=== PATIENT | female | born 1985 | race Asian ===

== ENCOUNTER 2019-12-23 12:34 | Inpatient (IN) | payer OTHER ==
[2019-12-23] MEDS ORDERED: BICITRA ORAL LIQD 30ML PO ONE (12:58)
[2019-12-23] MEDS ORDERED: FAMOTIDINE 20 MG/2 ML INJ IV ONE (12:58)
[2019-12-23] MEDS ORDERED: METOCLOPRAMIDE 10 MG/2 ML INJ IV ONE (12:58)
[2019-12-23] MEDS ORDERED: ceFAZolin/Water 2 GM/20 ML 2 GM/20 ML SYRINGE IV NR (13:00)
[2019-12-23] MEDS ORDERED: LACTATED RINGERS 1,000 ML IV SCH (13:00)
[2019-12-23] MEDS ORDERED: OXYTOCIN 20 UNIT/1000ML DRIP 20 UNITS/1,000 ML BAG IV SCH ×2 (13:00→15:00)
[2019-12-23 13:17] LABS: Basophils # (Auto) 0.1 K/mm3 (0.0-0.1); Basophils % (Auto) 0.7 % (0.0-1.8); Eosinophils # (Auto) 0.1 K/mm3 (0.0-0.4); Eosinophils % (Auto) 0.6 % (0.0-4.3); Hematocrit 35.9 % (30.3-42.9); Hemoglobin 12.5 gm/dl (10.1-14.3); Lymphocytes # (Auto) 1.9 K/mm3 (1.2-5.4); Lymphocytes % (Auto) 19.2 % (13.4-35.0); Mean Corpuscular HGB Conc 35 % (30-34); Mean Corpuscular Volume 86 fl (79-97); Monocytes # (Auto) 0.5 K/mm3 (0.0-0.8); Monocytes % (Auto) 5.6 % (0.0-7.3); Platelet Count 122 K/mm3 (140-440); Red Blood Count 4.19 M/mm3 (3.65-5.03); Red Cell Distribution Width 13.9 % (13.2-15.2)
[2019-12-23] MEDS ORDERED: DEXMEDETOMIDINE 200 MCG/2 ML VIAL IV ONE (13:32)
--- NOTE | 2019-12-23 13:40 | History and Physical Report ---
History of Present Illness Date of examination: 12/23/19 Date of admission: 12/23/19 12:34 Chief complaint: Breech in labor History of present illness: Pt is a 34yo BF EDC 01/05/20; EGA 38 1/7 weeks presents for a C Section for Breech presentation in labor. She complined of RUC's in the office and found to be dilated 3cms. She received care at [facility] since 10 weeks and co-managed by [facility] for history of PTD. records are a vailable and GBS is Positive. Past History Past Medical History: no pertinent history Past Surgical History: no surgical history Family/Genetic History: none Social history: no significant social history, - Obstetrical History Expected Date of Delivery: 01/05/20 Actual Gestation: 38 Week(s) 1 Day(s) : 4 Medications and Allergies Allergies Allergy/AdvReac Type Severity Reaction Status Date / Time No Known Allergies Allergy Verified 11/21/14 21:48 Home Medications Medication Instructions Recorded Confirmed Last Taken Type Pnv,Calcium 72/Iron/Folic Acid 1 tab PO DAILY 11/22/14 12/23/19 12/22/19 08:00 History [Pnv Plus Multivit Tab] Active Meds: Active Medications Oxytocin/Sodium Chloride (Pitocin/Ns 20 Unit/1000ml Drip) 20 units in 1,000 mls @ 0 mls/hr IV TITR STEPHEN Lactated Ringer's (Lactated Ringers) 1,000 mls @ 2,250 mls/hr IV PREOP STEPHEN Stop: 12/24/19 13:27 Last Admin: 12/23/19 13:22 Dose: 2,250 mls/hr Documented by: Cefazolin Sodium (Ancef/Sterile Water 2 Gm/20 Ml) 2 gm in 20 mls @ 80 mls/hr IV PREOP NR; Protocol Stop: 12/23/19 23:59 Review of Systems All systems: negative - Vital Signs Vital signs: Vital Signs Temp Resp 98.3 F 12/23/19 13:02 12/23/19 13:02 Temp Pulse Resp BP Pulse Ox 98.3 F 12/23/19 13:02 12/23/19 13:02 - Physical Exam Breasts: Positive: deferred Cardiovascular: Regular rate Lungs: Positive: Clear to auscultation Abdomen: Positive: normal appearance Genitourinary (Female): Positive: normal external genitalia Vagina: Positive: normal moisture Uterus: Positive: enlarged Extremities: Positive: normal - Obstetrical FHR: category 1 Uterine Contraction Monitor Mode: External Cervical Dilatation: 3 Cervical Effacement Percentage: 50 station: -3 Uterine Contraction Pattern: Regular Uterine Tone Measurement Phase: Contraction Uterine Contraction Intensity: Mild Results Result Diagrams: 12/23/19 12:30 Abnormal lab results 12/23/19 Range/Units 12:30 MCHC 35 H (30-34) % Plt Count 122 L (140-440) K/mm3 Seg Neutrophils % 73.9 H (40.0-70.0) % All other labs normal. Assessment and Plan - Patient Problems (1) 38 weeks gestation of Onset Date: 12/23/19 Current Visit: Yes Status: Acute Plan to address problem: A: IUP @ 38 1/7 weeks in labor Breech presentation +GBS P: Admit to L&D for Primary C Section (2) Breech presentation Onset Date: 12/23/19 Current Visit: Yes Status: Acute Qualifiers: Fetus number: single or unspecified fetus Qualified Code(s): O32.1XX0 - Maternal care for breech presentation, not applicable or unspecified
--- NOTE | 2019-12-23 13:45 | Anesthesia Consultation ---
Anesthesia Consult and Med Hx Date of service: 12/23/19 - Airway Anesthetic Teeth Evaluation: Good ROM Head & Neck: Adequate Mental/Hyoid Distance: Adequate Mallampati Class: Class III Intubation Access Assessment: Probably Good - Pulmonary Exam CTA: Yes - Cardiac Exam Cardiac Exam: RRR - Pre-Operative Health Status ASA Pre-Surgery Classification: ASA2 Proposed Anesthetic Plan: Spinal - Pulmonary Hx Smoking: No Hx Asthma: No Hx Respiratory Symptoms: No SOB: No COPD: No Home Oxygen Therapy: No Hx Pneumonia: No Hx Sleep Apnea: No - Cardiovascular System Hx Hypertension: No Hx Coronary Artery Disease: No Hx Heart Attack/AMI: No Hx Angina: No Hx Percutaneous Transluminal Coronary Angioplasty (PTCA): No Hx Cardia Arrhythmia: No Hx Pacemaker: No Hx Internal Defibrillator: No Hx Valvular Heart Disease: No Hx Heart Murmur: No Hx Peripheral Vascular Disease: No - Central Nervous System Hx Neuromuscular Disorder: No Hx Seizures: No CVA: No Hx Back Pain: No Hx Psychiatric Problems: No - Gastrointestinal Hx Ulcer: No Hx Gastroesophageal Reflux Disease: No - Endocrine Hx Renal Disease: No Hx End Stage Renal Disease: No Hx Cirrhosis: No Hx Liver Disease: No Hx Insulin Dependent Diabetes: No Hx Non-Insulin Dependent Diabetes: No Hx Thyroid Disease: No Hx Hypothyroidism: No Hx Hyperthyroidism: No - Hematic Hx Anemia: No Hx Sickle Cell Disease: No - Other Systems Hx Alcohol Use: No Hx Substance Use: No Hx Cancer: No Hx Obesity: No
[2019-12-23] MEDS ORDERED: HYDROmorphone 1 MG/1 ML INJ IV PRN (13:46)
[2019-12-23] MEDS ORDERED: ONDANSETRON 4 MG/2 ML INJ IV PRN (13:46)
--- NOTE | 2019-12-23 13:46 | Anesthesia Day of Surgery ---
Anesthesia Day of Surgery - Day of Surgery Patient Examined: Yes Patient H&P Reviewed: Yes Patient is NPO: Yes Beta Blockers: No Cardiac Clearance: No Pulmonary Clearance: No Donal's Test: N/A
[2019-12-23] MEDS ORDERED: WATER FOR IRRIG STERILE 1,500 ML BOTTLE IR ONE (14:10)
[2019-12-23] MEDS ORDERED: SODIUM CHLORIDE 0.9% IRR 1,500 ML BOTTLE IR ONE (14:10)
[2019-12-23] MEDS ORDERED: KETAMINE/STERILE WATER 50 MG/ML SYRINGE ONE (14:18)
[2019-12-23] MEDS ORDERED: PROPOFOL 200 MG/20 ML VIAL IV ONE (14:19)
[2019-12-23] MEDS ORDERED: ONDANSETRON 4 MG/2 ML INJ ONE (14:25)
[2019-12-23] MEDS ORDERED: fentaNYL 100 MCG/2 ML INJ ONE (14:40)
[2019-12-23] MEDS ORDERED: PHENYLEPHRINE/NS 1,000 MCG/10 ML SYRINGE (OR USE) IV ONE (14:42)
--- NOTE | 2019-12-23 14:57 | Operative Report ---
Operative Report Operative Report: Date of procedure: 12/23/2019 Pre-operative diagnosis: 1. Intrauterine at 38 1/7 weeks 2. Breech presentation Post-operative diagnosis: Same Procedure name(s): Primary low transverse section Surgeon: Satish Tamez MD Flat Locker: None Anesthesia: Spinal anesthesia by Mary Ann Paulson CRNA EBL: 700 mL's Findings: A 3416 gm female Apgars 8 at 1 minute 9 at 5 minutes. Des breech presentation. Normal tubes and ovaries bilaterally. Procedure: After the patient was prepped and draped in usual sterile fashion, and after satisfactory level of spinal anesthesia was obtained, the skin knife was used to make a transverse skin incision. The incision was incised down to l micheal of the fascia, which was nicked in the midline and extended laterally using the Bovie cautery. The rectus muscles were dissected off the rectus fascia both superiorly and inferiorly. The rectus bellies in the midline, and the peritoneum was entered under direct visualization. The peritoneal incision was extended superiorly and inferiorly. A bladder flap was created and the bladder blade was then placed. The uterus was scored in a curvilinear linear fashion, entered in the midline revealing clear amniotic fluid. The 's Des breech was delivered onto the surgical field, followed by the rest of the infant's body, and the oropharynx and nasopharynx were bulb suctioned. The cord was doubly clamped and cut and the was handed to the awaiting respiratory team. Cord blood was then obtained. The placenta was manually removed from the uterus, and the uterus removed from its normal anatomical position. After gentle uterine lavage, the incision was inspected and found to be without extensions. It was then closed in 2 layers using 0 Vicryl suture in a running interlocking fashion, the second layer imbricating the first. After good hemostasis was achieved, copious amounts or irrigation was performed, and the gutters were suctioned free of blood and blood clots. The uterus was then returned to its normal anatomical position, and the peritoneum was re-a pproximated using 3-0 Vicryl suture in a running interlocking fashion, and then the rectus muscles were re-approximated using 3-0 Vicryl suture in a [id number] configuration. The fascia was then re-approximated using 0 Vicryl suture in running interlocking fashion. The subcutaneous layer was made hemostatic using Bovie cautery, and the skin edges re-approximated using 4-0 Vicryl suture in a sub-cuticular fashion. Patient tolerated the procedure well was transported to recovery in stable condition.
[2019-12-23] MEDS ORDERED: MAGNESIUM HYDROXIDE (MOM) ORAL LIQD UDC PO PRN (14:58)
[2019-12-23] MEDS ORDERED: LANOLIN/ZINC/DIMETHICONE (LANSINOH) 7 GM TP PRN (14:58)
[2019-12-23] MEDS ORDERED: NALOXONE 0.4 MG/1 ML INJ IV PRN (14:58)
[2019-12-23] MEDS ORDERED: SIMETHICONE 80 MG CHEW TAB PO PRN (14:58)
[2019-12-23] MEDS ORDERED: MORPHINE 4 MG/1 ML INJ IV PRN (14:58)
[2019-12-23] MEDS ORDERED: SENNOSIDES 8.6 MG TAB PO PRN (14:58)
[2019-12-23] MEDS ORDERED: HYDROcodone/ACETAMINOPHEN 5-325 MG TAB PO PRN (14:58)
[2019-12-23] MEDS ORDERED: ACETAMINOPHEN 325 MG TAB PO PRN (14:58)
[2019-12-23] MEDS ORDERED: KETOROLAC 30 MG/1 ML INJ IV PRN (14:58)
[2019-12-23] MEDS ORDERED: WITCH HAZEL/ GLYCERIN PAD TP PRN (14:58)
[2019-12-23] MEDS: oxyCODONE /ACETAMINOPHEN 5-325MG TAB PO PRN (18:38)
[2019-12-23] MEDS: ceFAZolin/NS 1 GM/50 ML 1 GM/50 ML BAG IV SCH (18:38)
[2019-12-23] MEDS: D5W/LACTATED RINGERS 1,000 ML IV SCH (22:24)
[2019-12-24] MEDS: ceFAZolin/NS 1 GM/50 ML 1 GM/50 ML BAG IV SCH (01:45)
[2019-12-24 05:05] LABS: Hematocrit 31.3 % (30.3-42.9); Hemoglobin 10.6 gm/dl (10.1-14.3)
[2019-12-24] MEDS: oxyCODONE /ACETAMINOPHEN 5-325MG TAB PO PRN ×3 (05:43→18:55)
[2019-12-24] MEDS: D5W/LACTATED RINGERS 1,000 ML IV SCH (06:38)
[2019-12-24] MEDS: FERROUS SULFATE 325 MG TAB PO SCH (10:24)
[2019-12-24] MEDS: PRENATAL VIT27-FE FUMARATE-FOLIC ACID VIT TAB PO SCH (10:24)
--- NOTE | 2019-12-24 11:00 | Progress Note ---
Assessment and Plan - Patient Problems (1) 38 weeks gestation of Onset Date: 12/23/19 Current Visit: Yes Status: Resolved (2) Breech presentation Onset Date: 12/23/19 Current Visit: Yes Status: Resolved Qualifiers: Fetus number: single or unspecified fetus Qualified Code(s): O32.1XX0 - Ma ternal care for breech presentation, not applicable or unspecified (3) Status post Onset Date: 12/24/19 Current Visit: Yes Status: Resolved Plan to address problem: A: S/P Primary C Section - POD #1 Doing well Asymptomatic anemia - stable P: Continue RPOC Anticipate discharge in 24-48hrs Subjective - Subjective Date of service: 12/24/19 Principal diagnosis: s/p Primary C Section - POD #1 Interval history: Pt is feeling well without complaints. Bleeding improved. Patient reports: appetite normal, voiding normally, pain well controlled, flatus, ambulating normally, no dizzy ambulation, no nauseated [place]: doing well, bottle feeding Objective - Vital Signs Latest vital signs: Vital Signs Temp Pulse Resp BP BP Pulse Ox 12/24/19 07:54 97.9 F 67 18 116/62 98 12/24/19 05:20 98.4 F 86 20 132/50 100 12/24/19 00:20 98.2 F 68 20 117/70 97 12/23/19 18:38 20 12/23/19 17:31 20 12/23/19 16:47 98.6 F 72 20 124/48 100 12/23/19 16:15 97.9 F 67 18 121/73 99 12/23/19 16:00 97.9 F 69 15 197/59 99 12/23/19 15:45 75 19 115/64 99 12/23/19 15:30 68 13 121/64 98 12/23/19 15:25 71 21 118/66 99 12/23/19 15:20 70 24 97 12/23/19 15:15 98.1 F 70 18 117/66 99 12/23/19 13:02 98.3 F 20 Intake and Output 12/23/19 12/24/19 12/24/19 22:59 06:59 14:59 Intake Total 870 1240 240 Output Total 1150 1300 200 Balance -280 -60 40 Intake: IV 150 1000 ANCEF/NS 1 GM/50 ML 1 gm 50 In 50 ml @ 100 mls/hr IV Q8H STEPHEN Rx#:[id number] D5lr 1,000 ml @ 125 mls/ 1000 hr IV DIRECT STEPHEN Rx#: [id number] Oral 240 240 240 Intake, Free Water 480 Output: Urine 1150 1300 200 Indwelling Catheter 800 1300 Void 200 Other: Total, Intake Amount 240 240 240 Total, Output Amount 800 300 200 # Voids Void 1 - Exam Breasts: Present: deferred Abdomen: Present: normal appearance, soft Uterus: Present: normal, firm, fundal height below umbilicus Extremities: Present: normal Incision: Present: normal, dry, intact, dressed - Labs Labs: Abnormal lab results 12/23/19 Range/Units 12:30 MCHC 35 H (30-34) % Plt Count 122 L (140-440) K/mm3 Seg Neutrophils % 73.9 H (40.0-70.0) % Laboratory Tests 12/23/19 12/23/19 12/24/19 12:30 12:30 03:22 WBC 9.8 RBC 4.19 Hgb 12.5 10.6 Hct 35.9 31.3 MCV 86 MCH 30 MCHC 35 H RDW 13.9 Plt Count 122 L Lymph % (Auto) 19.2 Patrick % (Auto) 5.6 Eos % (Auto) 0.6 Baso % (Auto) 0.7 Lymph # 1.9 Patrick # 0.5 Eos # 0.1 Baso # 0.1 Seg Neutrophils % 73.9 H Seg Neutrophils # 7.2 Blood Type O POSITIVE Antibody Screen Negative
[2019-12-24] MEDS ORDERED: TETANUS,DIPH,PERTUSS(ACELL) VACCINE 0.5 ML SYRINGE IM ONE (14:59)
[2019-12-24] MEDS ORDERED: MEASLES, MUMPS & RUBELLA 12,500 UNIT/0.5 ML VACCINE SUB-Q ONE (14:59)
[2019-12-25] MEDS: IBUPROFEN 800 MG TAB PO PRN ×2 (00:18→06:03)
--- NOTE | 2019-12-25 10:09 | Progress Note ---
Assessment and Plan - Patient Problems (1) 38 weeks gestation of Onset Date: 12/23/19 Current Visit: Yes Status: Resolved (2) Breech presentation Onset Date: 12/23/19 Current Visit: Yes Status: Resolved Qualifiers: Fetus number: single or unspecified fetus Qualified Code(s): O32.1XX0 - Ma ternal care for breech presentation, not applicable or unspecified (3) Status post Onset Date: 12/24/19 Current Visit: Yes Status: Resolved Plan to address problem: A: S/P Primary C Section - POD #2 Doing well Asymptomatic anemia - stable P: May go home today. Subjective - Subjective Date of service: 12/25/19 Principal diagnosis: s/p Primary C Section - POD #2 Interval history: Pt is feeling well without complaints. She is tolerating a reg diet without nausea or vomiting, ambulating and voiding without difficulty. Wants to go home today. Patient reports: appetite normal, voiding normally, pain well controlled, flatus, ambulating normally, no dizzy ambulation, no nauseated : doing well, nursing well Objective - Vital Signs Latest vital signs: Vital Signs Temp Pulse Resp BP Pulse Ox 12/25/19 07:23 97.7 F 90 18 123/78 98 12/25/19 01:18 98.0 F 69 18 131/81 98 12/24/19 18:55 20 12/24/19 15:19 97.9 F 71 18 128/76 98 12/24/19 13:10 20 12/24/19 13:05 98.9 F 73 18 133/75 96 Intake and Output 12/24/19 12/25/19 12/25/19 22:59 06:59 14:59 Intake Total 480 720 Output Total 425 Balance 55 720 Intake: Oral 480 Intake, Free Water 480 240 Output: Urine 425 Void 425 Other: Total, Intake Amount 480 Total, Output Amount 425 # Voids Void 3 2 - Exam Breasts: Present: deferred Abdomen: Present: normal appearance, soft Uterus: Present: normal, firm, fundal height below umbilicus Extremities: Present: normal Incision: Present: normal, dry, intact, dressed
[2019-12-25] MEDS: FERROUS SULFATE 325 MG TAB PO SCH (10:10)
[2019-12-25] MEDS: PRENATAL VIT27-FE FUMARATE-FOLIC ACID VIT TAB PO SCH (10:10)
--- NOTE | 2019-12-25 10:16 | Discharge Summary ---
Providers - Providers Date of Admission: 12/23/19 12:34 Date of discharge: 12/25/19 Attending physician: JAISON JESSICA Primary care physician: JAISON JESSICA Hospitalization Reason for admission: section, IUP at term, other (Breech) Delivery: Procedure: section, primary low transverse Episiotomy: none Laceration: none Incision: normal, dry, intact Other procedures: none complications: none Discharge diagnosis: IUP at term delivered [place] baby: female Hospital course: Pt is a 34yo BF EDC 01/05/20; EGA 38 11/30 weeks who presented for a C Section for Breech presentation in labor. She complained of RUC's in the office and was found to be dilated 3cms. She received care at [facility] since 10 weeks and co-managed by [facility] for history of PTD. She underwent an uncomplicated Primary C Section , and postoperative course was unremarkable. By POD #2 she was tolerating a reg diet without nausea or vomiting, ambulating and voiding without difficulty, and therefore was discharged to home on POD #2 in stable condition. She will follow up in the office in 1 week for incision check. Condition at discharge: Good Disposition: DC-01 TO HOME OR SELFCARE - Discharge Diagnoses (1) 38 weeks gestation of Status: Resolved (2) Breech presentation Status: Resolved Qualifiers: Fetus number: single or unspecified fetus Qualified Code(s): O32.1XX0 - Maternal care for breech presentation, not applicable or unspecified (3) Status post Status: Resolved Plan - Discharge Medications Prescriptions: Ferrous Sulfate [Feosol 325 MG tab] 325 mg PO BID #60 tablet Ibuprofen [Motrin 800 MG tab] 800 mg PO Q6H PRN #30 tablet PRN Reason: Pain, Mild (1-3) oxyCODONE /ACETAMINOPHEN [Percocet 5/325 mg] 1 tab PO Q6H PRN #30 tablet PRN Reason: Pain, Moderate (4-6) Vit-Fe Fumar-FA [ Vitamin] 1 each PO QDAY #30 tablet - Provider Discharge Summary Activity: routine, no sex for 6 weeks, no heavy lifting 4 weeks, no strenuous exercise Diet: routine Instructions: routine Additional instructions: [] Smoking cessation referral if applicable(refer to patient education folder for contact #) [] Refer to [facility] Booklet Call your doctor immediately for: * Fever > 100.5 * Heavy vaginal bleeding ( >1 pad per hour) * Severe persistent headache * Shortness of breath * Reddened, hot, painful area to leg or breast * Drainage or odor from incision. * Keep incision clean and dry at all times and follow doctor's instructions regarding bathing/showering - Follow up plan Follow up: JAISON JESSICA MD [Primary Care Provider] - 7 Days ABEBE YANEZ MD [Referring] - 7 Days Forms: [facility] Discharge Summary
[2019-12-25 13:19] VITALS: BP 135/51
== END 2019-12-25 14:00 | disposition home or self-care (01) | DRG 766 ==
LOC: APU 12:34 → OB 17:09
PROVIDERS: ADMIT Obstetrics & Gynecology; ATTEND Obstetrics & Gynecology
PROC: 10D00Z1 Extraction of Products of Conception, Low, Open Approach (ICD-10-PCS; principal; 2019-12-23)
PROC: 3E0234Z Introduction of Serum, Toxoid and Vaccine into Muscle, Percutaneous Approach (ICD-10-PCS; 2019-12-24)
PROC: 3E0134Z Introduction of Serum, Toxoid and Vaccine into Subcutaneous Tissue, Percutaneous Approach (ICD-10-PCS; 2019-12-24)
DX: O32.1XX0 Maternal care for breech presentation, not applicable or unspecified (principal); O99.824 Streptococcus B carrier state complicating childbirth; D64.9 Anemia, unspecified; O90.81 Anemia of the puerperium; Z3A.38 38 weeks gestation of pregnancy; Z37.0 Single live birth; Z23 Encounter for immunization
CPT/HCPCS: 36415; 85014; 85018; 85025; 86850; 86900; 86901; G0378; J0690; J1885; J2270; J2370; J2405; J2590; J2704; J2765; J3010; J3490; J7120; J7121